=== PATIENT | female | born 1950 | race Caucasian/White ===

== ENCOUNTER 2019-10-02 21:07 | Emergency (ER) | payer MEDICARE ==
[~2019-10-02] VITALS: Ht 149.9 cm; Wt 79.4 kg
[2019-10-02] MEDS ORDERED: CELEXA 20 MG TA20 MG PO (21:28)
[2019-10-02] MEDS ORDERED: NORVASC 2.5 MG2.5 M1 PO (21:29)
[2019-10-02] MEDS ORDERED: ASA81BEC PO (21:29)
[2019-10-02] MEDS ORDERED: LIPITOR20 MG PO (21:30)
[2019-10-02] MEDS ORDERED: BISOPROLOL FUMA10 MG PO (21:30)
[2019-10-02] MEDS ORDERED: CLARITIN10 M3 PO (21:31)
[2019-10-02] MEDS ORDERED: FLEXERIL PO (21:31)
[2019-10-02] MEDS ORDERED: ISOSORBIDE MONO30 M1 PO (21:32)
[2019-10-02] MEDS ORDERED: FLONASE 0.05%50 MCG NARES (21:32)
[2019-10-02] MEDS ORDERED: NITROSTAT0.4 M1 SUBLING (21:33)
[2019-10-02] MEDS ORDERED: LISINOPRIL2.5 MG PO (21:33)
[2019-10-02] MEDS ORDERED: TURMERIC500 M2 PO (21:34)
[2019-10-02] MEDS ORDERED: TRAMADOL 50 MG50 MG PO ×2 (21:34→22:47)
[2019-10-02] MEDS ORDERED: ONE-A-DAY WOMENS PO (21:35)
[2019-10-02] MEDS ORDERED: DULCOLAX STOOL100 M1 PO (21:35)
[2019-10-02] MEDS ORDERED: PREDNISONE50 MG PO (22:47)
[2019-10-02 23:20] VITALS: BP 163/69
== END 2019-10-02 23:21 | disposition home or self-care (01) ==
LOC: M.ERS 21:07
DX: M77.9 Enthesopathy, unspecified (principal); I10 Essential (primary) hypertension; E78.00 Pure hypercholesterolemia, unspecified; M19.90 Unspecified osteoarthritis, unspecified site; F17.210 Nicotine dependence, cigarettes, uncomplicated; Z95.5 Presence of coronary angioplasty implant and graft; Z90.710 Acquired absence of both cervix and uterus; Z90.49 Acquired absence of other specified parts of digestive tract; Z88.0 Allergy status to penicillin; Z88.8 Allergy status to other drugs, medicaments and biological substances